=== PATIENT | female | born 1970 | race Caucasian/White ===

== ENCOUNTER 2019-03-26 15:57 | Emergency (ER) | payer OTHER ==
[~2019-03-26] VITALS: Ht 154.9 cm; Wt 63.6 kg
[~2019-03-26 15:57] MED LIST: MIRT15 PO
[2019-03-26] MEDS ORDERED: CYCL10 PO (16:03)
[2019-03-26] MEDS ORDERED: CEPH500 PO (16:03)
[2019-03-26 16:39] VITALS: BP 125/85
[2019-03-26] MEDS ORDERED: IBUPROFEN 400 MG TABLET PO ONE (16:45)
== END 2019-03-26 16:48 | disposition home or self-care (01) ==
LOC: EMS 15:58
DX: M62.838 Other muscle spasm (principal); F41.9 Anxiety disorder, unspecified; Z79.899 Other long term (current) drug therapy